=== PATIENT | female | born 2000 | race Caucasian/White ===

== ENCOUNTER 2022-12-24 09:30 | Outpatient (CLI) | payer BC, SELFPAY | END 2022-12-24 09:31 | disposition home or self-care (01) | LOC: NFLDREF 12-25 12:32 | PROVIDERS: PCP Physician Assistant Medical; Referring Provider Physician Assistant Medical; Visit Provider Physician Assistant Medical | DX: Z11.59 Encounter for screening for other viral diseases (principal) | CPT/HCPCS: 86706; 87340 ==